=== PATIENT | female | born 1945 | race Caucasian/White ===

== ENCOUNTER 2019-09-30 08:56 | Observation (INO) | payer MEDICARE, BC ==
[~2019-09-30] VITALS: Ht 162.6 cm; Wt 54.9 kg
[~2019-09-30 08:56] MED LIST: ALENDRONATE; BENADRYL25 MG PO; BENTYL20 MG; BIOTIN1 MG; LAMICTAL XR100 MG PO; MEDROLDOSEPACK PO; OXCARBAZEPINE; PROTONIX40 MG PO; SEIZURE MEDICATION
[2019-09-30 09:03] VITALS: BP 158/47
[2019-09-30] MEDS ORDERED: QUESTRAN PACKET4 GM PO (09:07)
[2019-09-30 09:50] LABS: ABSOLUTE BASOPHILS 0.1 thou/uL (0.0-0.2); ABSOLUTE EOSINOPHILS 0.1 thou/uL (0.0-0.7); ABSOLUTE LYMPHOCYTES 1.4 thou/uL (0.8-5.3); ABSOLUTE MONOCYTES 0.6 thou/uL (0.0-1.2); ABSOLUTE NEUTROPHILS 4.5 thou/uL (1.6-8.1); EOSINOPHILS 1.6 %; LYMPHOCYTES 20.7 %; MCH 31.9 pg (26.0-34.0); MCHC 34.2 g/dL (28.0-37.0); MCV 93.3 fL (80.0-100.0); MONOCYTES 8.5 %; MPV 9.9 fl. (7.2-11.1); NUCLEATED RBCS 0 /100WBC; PLATELET COUNT* 239 thou/uL (150-400); POLYS 68.2 %; RBC 4.39 mil/uL (4.20-5.00); RDW-CV 12.4 % (10.5-14.5); WBC 6.6 thou/uL (4.0-11.0)
[2019-09-30 09:59] LABS: CALCIUM 8.9 mg/dL (8.5-10.1); CREATININE 0.8 mg/dL (0.6-1.3)
[2019-09-30 10:10] LABS: APTT 25.9 Seconds (25.0-31.3); PROTIME 10.6 Seconds (9.20-11.50)
[2019-09-30 10:13] LABS: ALBUMIN 3.6 g/dL (3.4-5.0); CK-MB MASS 0.8 ng/mL (<0.5-3.6); MAGNESIUM 2.2 mg/dL (1.8-2.4); TOTAL BILIRUBIN 0.3 mg/dL (<0.1-1.0); TOTAL PROTEIN 6.7 g/dL (6.4-8.2)
[2019-09-30 11:44] VITALS: BP 128/57
[2019-09-30 12:00] VITALS: BP 128/57
[2019-09-30] MEDS ORDERED: OXCARBAZEPINE150 MG PO (12:25)
[2019-09-30] MEDS ORDERED: BENTYL 10 MG CA10 M1 PO (12:26)
[2019-09-30 16:00] VITALS: BP 117/55
--- NOTE | 2019-09-30 16:53 | NUR ---
PT UP FROM ED THIS AFTERNOON. PT DENIES PALPITATIONS OR CP. NSR ON MONITOR. TOLERATING PO WELL. UP AD TENZIN IN ROOM
[2019-10-01] VITALS: BP 106/49
[2019-10-01 04:00] VITALS: BP 100/45
--- NOTE | 2019-10-01 05:07 | NUR ---
ASSUMED PATIENT CARE AT 1900. ASSESSMENT CHARTED COMPLETED. VSS. PATIENT IS SR WITH PVCS ON THE MONITOR. HOURLY ROUNDING IN PLACE FOR PATIENT SAFETY. CLWR.
[2019-10-01 08:00] VITALS: BP 127/61
--- NOTE | 2019-10-01 12:00 | NUR ---
MET WITH PT TO DISCUSS HOME SITUATION/DC PLANNING. PT LIVES ALONE, IS INDEPENDENT AND ACTIVE. USES NO EQUIPMENT AND DENIES NEEDS.
[2019-10-01 13:35] VITALS: BP 127/61
--- NOTE | 2019-10-01 14:57 | 2DMMODE ---
[place] [address] 2 D/M-MODE ECHOCARDIOGRAM Name: GAURANG SHAFER Room: [address] IN .R.#: [id number] Admission: 09/30/19 Attend Phys: Alex Adams Discharge: Date of : 47 Date of Service: 10/01/19 1456 Report #: [id number] THIS REPORT FOR: //name// APPROVED REPORT Study performed: 10/01/2019 11:06:13 EXAM: Comprehensive 2D, Doppler, and color-flow Echocardiogram BSA: 1.57 HR: 69 bpm BP: 100/45 mmHg Other Information Study Quality: Good Indications Abnormal ECG Palpitations 2D Dimensions IVSd: 7.60 (7-11mm) LVOT Diam: 17.95 (18-24mm) LVDd: 35.15 mm PWd: 7.52 (7-11mm) Ascending Ao: 24.77 (22-36mm) LVDs: 25.42 (25-40mm) Aortic Root: 20.24 mm Volumes Left Atrial Volume (Systole) LA ESV Index: 11.70 mL/m2 Aortic Valve AoV Peak Amol.: 1.07 m/s AO Peak Gr.: 4.57 mmHg LVOT Max P.12 mmHg AO Mean Gr.: 2.56 mmHg LVOT Mean P.40 mmHg LVOT Max V: 1.01 m/s AO V2 VTI: 20.37 cm LVOT Mean V: 0.73 m/s BENSON (VTI): 2.48 cm2 LVOT V1 VTI: 19.92 cm Mitral Valve E/A Ratio: 0.89 MV Decel. Time: 283.86 ms MV E Max Amol.: 0.55 m/s MV PHT: 82.32 ms MVA (PHT): 2.67 cm2 [place] [address] 2 D/M-MODE ECHOCARDIOGRAM Name: GAURANG SHAFER Room: [address] IN [facility]#: [id number] Admission: 09/30/19 Attend Phys: Alex Adams Discharge: Date of : 47 Date of Service: 10/01/19 1456 Report #: [id number] TDI E/Lateral E': 7.86 E/Medial E': 7.86 Medial E' Amol.: 0.07 m/s Lateral E' Amol.: 0.07 m/s Pulmonary Valve PV Peak Amol.: 1.01 m/s PV Peak Gr.: 4.07 mmHg Tricuspid Valve RAP Estimate: 5.00 mmHg TR Peak Gr.: 24.54 mmHg RVSP: 29.54 mmHg PA Pressure: 29.54 mmHg Left Ventricle The left ventricle is normal size. There is normal LV segmental wall motion. There is normal left ventricular wall thickness. Left ventricular systolic function is normal. The left ventricular ejection fraction is within the normal range. LVEF is 65%. Grade I - abnormal relaxation pattern. Right Ventricle The right ventricle is normal size. The right ventricular systolic function is normal. Atria The left atrium size is normal. The right atrium size is normal. Aortic Valve The aortic valve is normal in structure. No aortic regurgitation is present. There is no aortic valvular stenosis. Mitral Valve The mitral valve is normal in structure. There is no mitral valve regurgitation noted. No evidence of mitral valve stenosis. Tricuspid Valve The tricuspid valve is normal in structure. There is no tricuspid valve regurgitation noted. Pulmonic Valve The pulmonary valve is normal in structure. There is no pulmonic [place] [address] 2 D/M-MODE ECHOCARDIOGRAM Name: GAURANG SHAFER Room: [address]#: [id number] Admission: 09/30/19 Attend Phys: Alex Adams Discharge: Date of : 47 Date of Service: 10/01/19 1456 Report #: [id number] The aortic root is normal in size. IVC is normal in size and collapses >50% with inspiration. Pericardium There is no pericardial effusion. <Conclusion> The left ventricle is normal size. There is normal left ventricular wall thickness. Left ventricular systolic function is normal. The left ventricular ejection fraction is within the normal range. LVEF is 65%. Grade I - abnormal relaxation pattern. The right ventricle is normal size. The left atrium size is normal. The aortic valve is normal in structure. The mitral valve is normal in structure. The tricuspid valve is normal in structure. IVC is normal in size and collapses >50% with inspiration. There is no pericardial effusion. There is normal LV segmental wall motion. <ELECTRONICALLY SIGNED> By: Sai Orosco MD, FACC 10/01/19 1456 1456 1456 Sai Orosco MD, FACC /INF
[2019-10-01 15:58] VITALS: BP 120/54
--- NOTE | 2019-10-01 17:03 | EXE ---
[place] [address] STRESS ECHOCARDIOGRAM Name: GAURANG SHAFER Room: [address] IN [facility]#: [id number] Admission: 09/30/19 Attend Phys: Alex Adams Discharge: Date of : 47 Date of Service: 10/01/19 1702 Report #: [id number] THIS REPORT FOR: //name// APPROVED REPORT Study performed: 10/01/2019 10:37:00 Exam: Stress Echocardiogram Indication: Chest pain , Dyspnea , Palpitations Patient Location: In-Patient Stress Nurse: Tran Melendez RN Room #: [facility] Supervising Physician: Sai Orosco MD Ht: 5 ft 3 in HR: 89 bpm BP: 118/74 mmHg Medical History Cardiac Risk Factors: Hyperlipidemia, FHX of CAD Procedure The patient underwent an Exercise Stress Test using the Baldomero Protocol. Blood pressure, heart rate, and EKG were monitored. An Echocardiogram was performed by agronomy technician in four stages in quad fashion. At peak stress, four selected images were obtained and placed side by side with resting images for comparison. Stress Test Details Stress Test: Exercise stress testing was performed using a Baldomero protocol. HR Resting HR: 89 bpm Max Heart Rate (APMHR): 147 bpm Max HR Achieved: 150 bpm Target HR (85% APMHR): 124 bpm % of APMHR: 102 Recovery HR: 100 bpm HR response to stress: Normal HR response to stress BP Resting BP: 118/74 mmHg Max BP: 177/70 mmHg Recovery BP: 120/70 mmHg BP response to stress: Normal blood pressure response to stress. ECG Resting ECG: minor nonspecific [place] [address] STRESS ECHOCARDIOGRAM Name: GAURANG SHAFER Room: [address]#: [id number] Admission: 09/30/19 Attend Phys: Alex Adams Discharge: Date of : 47 Date of Service: 10/01/19 1702 Report #: [id number] Stress ECG: slight and nonspecific increase in st-t changes Arrhythmia: rare isolated pac's and pvc's Clinical Reason for Termination: Completed protocol Exercise duration: 8 min 02 sec Highest Stage Achieved: Stage 3: 3.4 mph at 14% grade. Exercise capacity: 10.14 METs Pre-Stress Echo The resting Echocardiogram showed normal left ventricular contractility with an estimated Ejection Fraction of about 60-65%. Normal wall motion in all segments on baseline images. Post-Stress Echo The stress Echocardiogram showed normal left ventricular contractility with an estimated Ejection Fraction of about >70%. Normal augmentation of wall motion in all segments on post stress images. Conclusion Clinical Response: Non-ischemic Exercise Capacity: Superior Stress ECG Response: Indeterminant Stress Echo Images: Non-ischemic Other Information Study Quality: Good <ELECTRONICALLY SIGNED> By: Sai Orosco MD, FACC 10/01/191701 01 01 Sai Orosco MD, FACC /INF
--- NOTE | 2019-10-01 17:04 | EKG ---
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 : 1945 Requested By: Tristan Ceballos Order Number: [id number] MD: Leonel Oshea Measurements Intervals [place] Rate: 79 P: 77 MI: 120 QRS: 59 QRSD: 85 T: 36 QT: 352 QTc: 404 Interpretive Statements Sinus rhythm Probable left atrial enlargement Minimal ST depression, lateral leads Baseline wander in lead(s) V4 Compared to ECG 01/07/2010 17:21:25 ST (T wave) deviation now present Electronically Signed On 10-01-2019 17:03:38 WINDOWS SOFTWARE ENGINEER by Leonel Oshea [email or web address] <ELECTRONICALLY SIGNED> By: Leonel Oshea MD, FAC 10/01/19 1703 0901 0901 Leonel Oshea MD, [facility] /EPI
== END 2019-10-01 17:45 | disposition home or self-care (01) ==
LOC: M.ERS 08:56 → M.2W 10:24 → M.TBA-ER 10:24 → M.2W 10:24
PROVIDERS: Family Medicine; ADMIT Internal Medicine
DX: R00.2 Palpitations (principal); R07.89 Other chest pain; E78.5 Hyperlipidemia, unspecified; G40.909 Epilepsy, unspecified, not intractable, without status epilepticus; I77.4 Celiac artery compression syndrome; Z79.899 Other long term (current) drug therapy